=== PATIENT | female | born 1940 | race Caucasian/White ===

== ENCOUNTER → 2024-07-01 | Outpatient (CLI) | payer MEDICARE ==
[2024-07-01 12:49] LABS: African American GFR (CKD) 61 (>60 ml/min/1.73 sqM); Blood Urea Nitrogen 24 mg/dL (7-17); Non-African American GFR(CKD) 53 (>60 ml/min/1.73 sqM)
--- NOTE | 2024-07-01 14:26 | CT ---
EXAMINATION TYPE: CT abdomen wo/w con CT DLP: 604.4 mGycm, Automated exposure control for dose reduction was used. 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 Oral contrast was administered. Coronal and sagittal reformats were performed . FINDINGS: LOWER CHEST: Partial visualization of anterior left chest wall loop recorder. Linear atelectasis with in the right middle and lower lobes and lingula. ABDOMEN LIVER: A few scattered hepatic cysts. GALLBLADDER AND BILE DUCTS: Unremarkable. PANCREAS: Unremarkable. SPLEEN: There is a peripherally calcified splenic artery aneurysm in the splenic hilum measured 1.8 c m. ADRENAL GLANDS: Unremarkable. KIDNEYS AND URETERS: No evidence of hydronephrosis. Nonobstructive right renal 2 mm calculus. The kid neys enhance symmetrically. Bilateral renal cysts identified. Majority within the bilateral renal sin uses. Round heterogenous enhancing left lower pole renal lesion measuring up to 2.7 cm (series 14, im age 44). Contrast is demonstrated within both collecting systems on the delayed phase. STOMACH AND BOWEL: Small hiatal hernia, duodenum is unremarkable. Enteric contrast reaches the descen ding colon. Distal colonic diverticulosis without visualized acute diverticulitis. No focal bowel wal l thickening or surrounding inflammatory changes. No evidence of bowel obstruction. PERITONEUM: No evidence of pneumoperitoneum or free fluid. VASCULATURE: Mild atherosclerotic calcifications are present throughout the abdominal aorta and its b ranches. No evidence of aortic aneurysm. MUSCULOSKELETAL: Healing right posterior lateral ninth through 11th rib fractures with callus formati on. Fracture lines are still present. The 10th rib fracture is segmental. Mild multilevel degenerativ e changes of the lumbar spine. Right-sided L4-L5 laminectomy defects. LYMPH NODES: No evidence for lymphadenopathy. SOFT TISSUE/ABDOMINAL WALL: Unremarkable IMPRESSION: 1. Left renal lower pole 2.7 cm heterogenous enhancing lesion highly concerning for renal cell carcin jayne until proven otherwise. No prior imaging available for comparison. 2. Bilateral nonenhancing renal sinus cysts. 3. Nonobstructive right renal calculus. 4. Healing posterior lateral right ninth through 11th rib fractures with callus formation. Fracture l lorena are still present. The 10th rib is a segmental fracture. Correlate for recent history of trauma. 5. Peripherally calcified splenic artery aneurysm measuring up to 1.8 cm. [facility], , 07/01/2024 2:24 PM
== END | disposition home or self-care (01) ==
LOC: RADCTMAIN 11:56
PROVIDERS: ATTEND Urology
DX: S22.41XD Multiple fractures of ribs, right side, subsequent encounter for fracture with routine healing (principal); D41.02 Neoplasm of uncertain behavior of left kidney; N20.0 Calculus of kidney; I72.8 Aneurysm of other specified arteries; N28.1 Cyst of kidney, acquired; X58.XXXD Exposure to other specified factors, subsequent encounter
CPT/HCPCS: 82565; 84520; 74170; 36415; Q9967

== ENCOUNTER → 2024-12-30 | Outpatient (CLI) | payer MEDICARE ==
[2024-12-30 11:26] LABS: African American GFR (CKD) 61 (>60 ml/min/1.73 sqM); Blood Urea Nitrogen 31 mg/dL (7-17); Non-African American GFR(CKD) 53 (>60 ml/min/1.73 sqM)
--- NOTE | 2024-12-31 09:25 | CT ---
EXAMINATION TYPE: CT abdomen wo/w con DATE OF EXAM: 12/30/2024 11:49 AM COMPARISON: 07/01/2024 CLINICAL INDICATION: Female, 84 years old with history of D41.02 Renal mass left; Renal mass left TECHNIQUE: CT of the abdomen before and after IV contrast administration. Delayed images through the kidney were also obtained. Sagittal and coronal reformats were created on a separate workstation. Contrast used:80ml mL of Isovue 300 without and with IV Contrast CT DLP: 1116.0 mGycm, Automated exposure control for dose reduction was used. FINDINGS: LOWER CHEST: Minimal strandy atelectasis in the lower lungs. Some residual scar medial left breast at the site of previous loop recorder. ABDOMEN LIVER: Numerous small hepatic cysts measuring up to 1.0 cm are unchanged. GALLBLADDER AND BILE DUCTS: Unremarkable. PANCREAS: Unremarkable. SPLEEN: Possible calcified splenic artery aneurysm measuring 1.8 cm at the hilum is unchanged. Tiny a nterior superior splenule. ADRENAL GLANDS: Unremarkable. KIDNEYS AND URETERS: Punctate 2 mm nonobstructive right renal stone. Numerous bilateral parapelvic cy sts in the kidneys measuring up to 2.8 cm there is symmetric uptake and excretion of contrast from antionette th kidneys. Redemonstrated solid heterogeneously enhancing cortical mass lower pole left kidney measu ring 2.9 cm, previously measuring 2.5 cm. PELVIS: Not imaged. ABDOMEN STOMACH AND BOWEL: 3.6 cm diverticulum from the third portion of the duodenum projecting up into the pancreatic head region. No evidence of bowel obstruction. Mild stool burden. No pericolonic inflammat ory change. PERITONEUM/RETROPERITONEUM: No evidence of pneumoperitoneum or free fluid. VASCULATURE: No evidence of aortic aneurysm. MUSCULOSKELETAL: Moderate spondylotic change throughout the lumbar spine. LYMPH NODES: No gross evidence for lymphadenopathy. SOFT TISSUE/ABDOMINAL WALL: Unremarkable IMPRESSION: 1. Redemonstrated solid, heterogeneously enhancing cortical mass lower pole left kidney. Minimally l arger at 2.9 cm versus 2.5 cm, previously. Indolent RCC remains to be excluded. If no intervention at this time, ongoing close surveillance is advised. 2. Redemonstrated numerous bilateral parapelvic cysts measuring up to 2.8 cm. 3. Punctate nonobstructive 2 mm right renal stone. [facility], , 12/31/2024 9:23 AM
== END | disposition home or self-care (01) ==
LOC: RADCTMAIN 10:07
PROVIDERS: ATTEND Urology
DX: D41.02 Neoplasm of uncertain behavior of left kidney (principal); N20.0 Calculus of kidney; N94.89 Other specified conditions associated with female genital organs and menstrual cycle
CPT/HCPCS: 82565; 84520; 74170; 36415; Q9967